=== PATIENT | male | born 1945 | race Caucasian/White ===

== ENCOUNTER 2022-05-21 15:03 | Day surgery (SDC) | payer OTHER ==
[~2022-05-21] VITALS: Ht 182.9 cm; Wt 81.9 kg
== END 2022-05-21 17:17 | disposition home or self-care (01) ==
LOC: ORSCSDS 15:03
PROVIDERS: Ophthalmology
PROC: 08DJ3ZZ Extraction of Right Lens, Percutaneous Approach (ICD-10-PCS; principal; 2022-05-21 16:30)
DX: H25.11 Age-related nuclear cataract, right eye (principal)
CPT/HCPCS: J2001; J2250; J3010; J3300; J3301; V2632

== ENCOUNTER 2022-05-28 14:25 | Day surgery (SDC) | payer OTHER ==
[~2022-05-28] VITALS: Ht 182.9 cm; Wt 81.3 kg
--- NOTE | 2022-05-28 15:29 | NUR ---
05/28/22 1529 Austin Gómez CALL LIGHT WITHIN REACH. TETRACAINE IN LEFT EYE AT 1519 AND PLEDGETT AT 1520
== END 2022-05-28 16:50 | disposition home or self-care (01) ==
LOC: ORSCSDS 14:25
PROVIDERS: Ophthalmology
PROC: 08RK3JZ Replacement of Left Lens with Synthetic Substitute, Percutaneous Approach (ICD-10-PCS; principal; 2022-05-28 16:00)
DX: H25.12 Age-related nuclear cataract, left eye (principal); H21.81 Floppy iris syndrome; Z96.1 Presence of intraocular lens
CPT/HCPCS: J2001; J2250; J3010; J3301; J7040; V2632